=== PATIENT | female | born 1975 | race Two or more races ===

== ENCOUNTER 2019-11-12 08:24 | Outpatient (CLI) | payer OTHER | END 2019-11-12 08:26 | disposition home or self-care (01) | LOC: SONOGRAMA 08:24 | DX: N63.10 Unspecified lump in the right breast, unspecified quadrant (principal); N63.20 Unspecified lump in the left breast, unspecified quadrant ==

== ENCOUNTER 2021-11-12 06:36 | Day surgery (SDC) | payer OTHER ==
[2021-11-12] MEDS ORDERED: MORGIDOX100 MG PO (09:27)
[2021-11-12] MEDS ORDERED: IBU600 MG PO (09:28)
== END 2021-11-12 13:45 | disposition home or self-care (01) ==
LOC: CIR.AMB 06:36
PROVIDERS: ATTEND Obstetrics & Gynecology
DX: N84.0 Polyp of corpus uteri (principal); Z20.822 Contact with and (suspected) exposure to COVID-19